=== PATIENT | female | born 1975 | race Two or more races ===

== ENCOUNTER 2021-01-13 17:52 | Emergency (ER) | payer OTHER ==
--- OUTSIDE RECORDS SUMMARY | 2021-01-13 17:55 | XMS REPORT | Continuity of Care Document ---
:1975 Author Organization [facility] t Address [address] [place] [address] Dr. Perales [address] [place] [id number] Care Team Providers Name Role Phone SYSTEM, NOT IN Attending Clinician Unavailable Problems This patient has no known problems. Allergies, Adverse Reactions, Alerts This patient has no known allergies or adverse reactions. Medications This patient has no known medications. Procedures This patient has no known procedures. Encounters Start End Encounter Admission Attending Care Care Encounter Source Date/Time Date/Time Type Type Clinicians Facility Department ID 2021-01-12 Outpatient SYSTEM, LILLIE MOREIRA [id number] 10:35:02 PROVIDER Dru o n Results This patient has no known results.
--- NOTE | 2021-01-13 19:52 | RAD REPORT ---
EXAM DESCRIPTION: Jennifer Single View01/13/2021 7:46 pm CLINICAL HISTORY: Chest pain COMPARISON: none FINDINGS: The lungs appear clear of acute infiltrate. The heart is normal size IMPRESSION: No acute abnormalities displayed
[2021-01-13 20:09] LABS: Absolute Lymphocytes (CBC) 1.9 K/uL (0.7-4.9); Basophils % 0.6 % (0-1.3); Hematocrit 36.5 % (36.0-45.0); Lymphocytes % 25.9 % (15.3-44.8); MPV 9.5 fL (7.6-11.3); RBC Red Blood Cell Count 4.96 M/uL (3.86-4.86)
[2021-01-13 20:12] LABS: Protime INR 0.91
[2021-01-13] MEDS ORDERED: NA CHLORIDE 0.9% 1,000 ML ONE (20:31)
[2021-01-13] MEDS ORDERED: ASPIRIN 81 MG CHEWABLE TABLET ONE (20:31)
[2021-01-13 20:35] LABS: ALT/SGPT 25 U/L (12-78); AST/SGOT 19 U/L (15-37); Albumin 3.6 g/dL (3.4-5.0); Alkaline Phosphatase 70 U/L (45-117); BUN Blood Urea Nitrogen 16 mg/dL (7-18); Bicarbonate 27 mmol/L (21-32); Bilirubin Direct < 0.1 mg/dL (0-0.2); Bilirubin Total 0.3 mg/dL (0.2-1.0); Glucose Level 105 mg/dL (74-106); Magnesium 2.4 mg/dL (1.8-2.4); NT PRO-BNP 10 pg/mL (<125); Protein, Total 7.7 g/dL (6.4-8.2); Sodium Level 140 mmol/L (136-145); Troponin (Emerg Dept Use Only) < 0.02 ng/mL (0.0-0.045)
--- NOTE | 2021-01-13 20:41 | RAD REPORT ---
EXAM DESCRIPTION: RAD - Ankle Right 3 View - 01/13/2021 8:30 pm CLINICAL HISTORY: Right ankle pain FINDINGS: Marked soft tissue swelling is present. No acute fracture or dislocation noted. Bony densities adjacent to the lateral malleolus likely chronic. Large plantar calcaneal spur
--- NOTE | 2021-01-13 21:12 | EDPHYS ---
Physician Documentation [facility] Name: Ankita Dhillon Age: 45 yrs Sex: Female : 1975 Arrival Date: 01/13/2021 Time: 17:55 Bed 26 Private MD: Jah Elder B ED Physician Karson Hilario HPI: 01/13 20:18 This 45 yrs old Female presents to ER via Ambulatory with complaints of Chest alyssa Tightness, Ankle Swelling. 20:18 The patient or guardian reports chest pain that is located primarily in the anterior alyssa chest wall, bilaterally. Onset: this morning. The pain does not radiate. Associated signs and symptoms: The patient has no apparent associated signs or symptoms. The chest pain is described as a pressure. Duration: The patient or guardian reports a single episode, that is now resolved. Modifying factors: The symptoms are alleviated by nothing. the symptoms are aggravated by nothing. Severity of pain: At its worst the pain was mild. The patient has not experienced similar symptoms in the past. 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 - Social history:: Smoking status: . - Family history:: not pertinent. ROS: 20:18 Constitutional: Negative for fever, chills, and weight loss, Eyes: Negative for injury, alyssa pain, redness, and discharge, ENT: Negative for injury, pain, and discharge, Neck: Negative for injury, pain, and swelling, Respiratory: Negative for shortness of breath, cough, wheezing, and pleuritic chest pain, Abdomen/GI: Negative for abdominal pain, nausea, vomiting, diarrhea, and constipation, Back: Negative for injury and pain, : Negative for injury, bleeding, discharge, and swelling, MS/Extremity: Negative for injury and deformity, Skin: Negative for injury, rash, and discoloration, Neuro: Negative for headache, weakness, numbness, tingling, and seizure, Psych: Negative for depression, anxiety, suicide ideation, homicidal ideation, and hallucinations, Allergy/Immunology: Negative for hives, rash, and allergies, Endocrine: Negative for neck swelling, polydipsia, polyuria, polyphagia, and marked weight changes, Hematologic/Lymphatic: Negative for swollen nodes, abnormal bleeding, and unusual bruising. 20:18 Cardiovascular: Positive for chest pain, of the chest. Exam: 20:18 Constitutional: This is a well developed, well nourished patient who is awake, alert, alyssa and in no acute distress. Head/Face: Normocephalic, atraumatic. Eyes: Pupils equal round and reactive to light, extra-ocular motions intact. Lids and lashes normal. Conjunctiva and sclera are non-icteric and not injected. Cornea within normal limits. Periorbital areas with no swelling, redness, or edema. ENT: Nares patent. No nasal discharge, no septal abnormalities noted. Tympanic membranes are normal and external auditory canals are clear. Oropharynx with no redness, swelling, or masses, exudates, or evidence of obstruction, uvula midline. Mucous membranes moist. Neck: Trachea midline, no thyromegaly or masses palpated, and no cervical lymphadenopathy. Supple, full range of motion without nuchal rigidity, or vertebral point tenderness. No Meningismus. Chest/axilla: Normal chest wall appearance and motion. Nontender with no deformity. No lesions are appreciated. Cardiovascular: Regular rate and rhythm with a normal S1 and S2. No gallops, murmurs, or rubs. Normal PMI, no JVD. No pulse deficits. Respiratory: Lungs have equal breath sounds bilaterally, clear to auscultation and percussion. No rales, rhonchi or wheezes noted. No increased work of breathing, no retractions or nasal flaring. Abdomen/GI: Soft, non-tender, with normal bowel sounds. No distension or tympany. No guarding or rebound. No evidence of tenderness throughout. Back: No spinal tenderness. No costovertebral tenderness. Full range of motion. Female : Normal external genitalia. Skin: Warm, dry with normal turgor. Normal color with no rashes, no lesions, and no evidence of cellulitis. MS/ Extremity: Pulses equal, no cyanosis. Neurovascular intact. Full, normal range of motion. Neuro: Awake and alert, GCS 15, oriented to person, place, time, and situation. Cranial nerves II-XII grossly intact. Motor strength 5/5 in all extremities. Sensory grossly intact. Cerebellar exam normal. Normal gait. Psych: Awake, alert, with orientation to person, place and time. Behavior, mood, and affect are within normal limits. Vital Signs: 17:59 BP 118 / 92; Pulse 92; Resp 17; Temp 98.1(TE); Pulse Ox 100% ; Weight 61.23 kg (R); tw2 Height 5 ft. 0 in. (152.40 cm); Pain 6/10; 19:08 BP 104 / 57; Pulse 76; Resp 18; Pulse Ox 100% on R/A; Pain 6/10; ld1 20:30 BP 118 / 69; Pulse 76; Resp 18; Pulse Ox 100% on R/A; ld1 21:51 BP 116 / 72; Pulse 70; Resp 18; Pulse Ox 100% on R/A; ld1 17:59 Body Mass Index 26.37 (61.23 kg, 152.40 cm) tw2 MDM: 19:18 Patient medically screened. alyssa 20:24 Differential diagnosis: abnormal EKG, acute myocardial infarction, acute pericarditis, alyssa anxiety, Cholelithiasis hiatal hernia, peptic ulcer disease, pulmonary embolus, stable angina, unstable angina. HEART Score: History: Slightly Suspicious (0), ECG: Normal (0), Age: > 45 and < 65 years (1), Risk Factors: 1 or 2 risk factors (1), [+ Family HX] Troponin: < or = 1 x Normal Limit (0). The patient was given aspirin in the Emergency Department. The patient's deep vein thrombosis risk score was calculated as follows: Total Score: 0. This patient was found to be at low risk for a deep vein thrombosis by using the Well's assessment criteria. The patient's pulmonary embolism risk score was calculated as follows: No Risks (0 Pts) Total Score: 0-2 points. This patient was found to be at low risk for a pulmonary embolism by using the Well's assessment criteria. REDDY Risk Score: TOTAL SCORE = 0. Data reviewed: vital signs, nurses notes, lab test result(s), EKG, radiologic studies, doppler, plain films. 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 Test interpretation: by ED physician or midlevel provider: ECG, plain radiologic studies. Counseling: I had a detailed discussion with the patient and/or guardian regarding: the historical points, exam findings, and any diagnostic results supporting the discharge/admit diagnosis, lab results, radiology results, the need for outpatient follow up. 01/13 19:26 Order name: Basic Metabolic Panel 01/13 19:26 Order name: CBC with Diff 01/13 19:26 Order name: LFT's 01/13 19:26 Order name: Magnesium 01/13 19:26 Order name: NT PRO-BNP 01/13 19:26 Order name: PT-INR 01/13 19:26 Order name: Troponin (emerg Dept Use Only) 01/13 20:10 Order name: CBC with Automated Diff; Complete Time: 20:26 EDHI 01/13 20:14 Order name: Protime (+INR); Complete Time: 20:26 EDHI 01/13 20:27 Order name: D-Dimer [facility] 01/13 20:35 Order name: Basic Metabolic Panel; Complete Time: 20:59 EDHI 01/13 20:35 Order name: Liver (Hepatic) Function; Complete Time: 20:59 EDHI 01/13 20:35 Order name: Troponin (Emerg Dept Use Only); Complete Time: 20:59 EDHI 01/13 20:35 Order name: NT PRO-BNP; Complete Time: 20:59 ED[facility] 01/13 19:26 Order name: XRAY Chest (1 view) 01/13 19:26 Order name: EKG; Complete Time: 19:27 01/13 19:26 Order name: Cardiac monitoring; Complete Time: 20:08 01/13 19:26 Order name: EKG - Nurse/Tech; Complete Time: 20:08 01/13 19:26 Order name: IV Saline Lock; Complete Time: 20:08 01/13 19:26 Order name: Labs collected and sent; Complete Time: 20:08 01/13 19:26 Order name: O2 Per Protocol; Complete Time: 19:38 01/13 19:26 Order name: O2 Sat Monitoring; Complete Time: 19:38 01/13 19:53 Order name: US Extremity Venous W Compression Chan [facility] 01/13 19:53 Order name: RAD; Complete Time: 20:26 EDHI 01/13 20:18 Order name: Ankle Right 3 View XRAY [facility] 01/13 20:35 Order name: Magnesium; Complete Time: 20:59 [facility] 01/13 20:41 Order name: RAD; Complete Time: 20:59 [facility] 01/13 20:45 Order name: D-Dimer; Complete Time: 20:59 [facility] 01/13 21:14 Order name: Mitchell wrap-joint; Complete Time: 21:15 [facility] 01/13 21:14 Order name: Ice pack; Complete Time: 21:15 [facility] Administered Medications: 20:13 Drug: NS 0.9% 1000 ml Route: IV; Rate: 1 bolus; Site: right antecubital; ld1 20:13 Drug: Aspirin 162 mg Route: PO; ld1 Disposition: 01/13/21 21:12 Discharged to Home. Impression: Chest pain, unspecified, Sprain of ankle. - Condition is Stable. - Discharge Instructions: Ankle Sprain, Nonspecific Chest Pain, RICE for Routine Care of Injuries, RICE for Routine Care of Injuries, [id number], Ankle Sprain, [id number]-[id number], Nonspecific Chest Pain, [id number]-ma-[id number], Stress and Stress Management, Aspirin and Your Heart, Ankle Pain. - Prescriptions for Pepcid 20 mg Oral Tablet - take 1 tablet by ORAL route every 12 hours for 10 days; 20 tablet. - Medication Reconciliation Form, Thank You Letter, Antibiotic Education, Prescription Opioid Use form. - Follow up: Jah Elder; When: 2 - 3 days; Reason: Recheck today's complaints, Continuance of care, Re-evaluation by your physician. Follow up: Marlo Oakes; When: 2 - 3 days; Reason: Recheck today's complaints, Re-evaluation by your physician. Follow up: Mihir Liao; When: 2 - 3 days; Reason: Recheck today's complaints, Re-evaluation by your physician. - Problem is new. - Symptoms have improved. Signatures: Dispatcher [employer] Karson Orozco MD MD cha Munoz, Edgar, RN RN Lottie Huitron RN RN tw2 Mae Winter RN RN ld1 Corrections: (The following items were deleted from the chart) 21:52 21:12 01/13/2021 21:12 Discharged to Home. Impression: Chest pain, unspecified; Sprain ld1 of ankle. Condition is Stable. Discharge Instructions: Ankle Sprain, Nonspecific Chest Pain, RICE for Routine Care of Injuries, RICE for Routine Care of Injuries, Wnwp-ka-Gyow, Ankle Sprain, Wopv-uf-Vzug, Nonspecific Chest Pain, Hvfu-nu-Laae, Stress and Stress Management, Aspirin and Your Heart, Ankle Pain. Prescriptions for Pepcid 20 mg Oral Tablet - take 1 tablet by ORAL route every 12 hours for 10 days; 20 tablet. and Forms are Medication Reconciliation Form, Thank You Letter, Antibiotic Education, Prescription Opioid Use. Follow up: Jah Elder; When: 2 - 3 days; Reason: Recheck today's complaints, Continuance of care, Re-evaluation by your physician. Follow up: Marlo Oakes; When: 2 - 3 days; Reason: Recheck today's complaints, Re-evaluation by your physician. Follow up: Mihir Liao; When: 2 - 3 days; Reason: Recheck today's complaints, Re-evaluation by your physician. Problem is new. Symptoms have improved. alyssa
--- NOTE | 2021-01-13 21:12 | ER ---
Nurse's Notes [facility] Name: Ankita Dhillon Age: 45 yrs Sex: Female : 1975 Arrival Date: 01/13/2021 Time: 17:55 Bed 26 Private MD: Jah Elder B Diagnosis: Chest pain, unspecified;Sprain of ankle Presentation: 01/13 17:59 Chief complaint: Patient states: i am stressed out at work and having been sleeping tw2 much. i got a diagnosis that i need a hysterectomy and it might be cancerous. my RIGHT ankle and leg is swollen. i had a clot before but it was in the calf. Chief complaint: Patient states: the pain has gotten worse. Coronavirus screen: At this time, the client does not indicate any symptoms associated with coronavirus-19. Ebola Screen: Patient denies travel to an Ebola-affected area in the 21 days before illness onset. Initial Sepsis Screen: Does the patient meet any 2 criteria? No. Patient's initial sepsis screen is negative. Does the patient have a suspected source of infection? No. Patient's initial sepsis screen is negative. Risk Assessment: Do you want to hurt yourself or someone else? Patient reports no desire to harm self or others. Onset of symptoms was January 13, 2021. 17:59 Method Of Arrival: Ambulatory tw2 17:59 Acuity: ANTONIO 3 tw2 Triage Assessment: 18:02 General: Appears in no apparent distress. slender, well groomed, Behavior is tw2 cooperative, appropriate for age, anxious. Pain: Complains of pain in right leg. Cardiovascular: Denies chest pain, "this morning my chest got really tight, it did go away". Musculoskeletal: Swelling present in right leg and ankle. 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 - Social history:: Smoking status: . - Family history:: not pertinent. Screenin:08 Abuse screen: Denies threats or abuse. Denies injuries from another. Nutritional ld1 screening: No deficits noted. Tuberculosis screening: No symptoms or risk factors identified. Fall Risk None identified. Assessment: 19:08 General: Appears in no apparent distress. comfortable, Behavior is calm, cooperative, ld1 appropriate for age, anxious. Pain: Complains of pain in right ankle, lateral aspect of right foot, right Achilles, right heel, medial aspect of right foot, anterior aspect of right ankle and dorsum of right foot Pain does not radiate. Pain currently is 6 out of 10 on a pain scale. Quality of pain is described as throbbing, Pain began 1 day ago. Is continuous. Neuro: Level of Consciousness is awake, alert, obeys commands, Oriented to person, place, time, situation, Appropriate for age. Cardiovascular: Capillary refill < 3 seconds Patient's skin is warm and dry. Respiratory: Airway is patent Respiratory effort is even, unlabored, Respiratory pattern is regular, symmetrical. GI: Abdomen is flat, non-distended. : No signs and/or symptoms were reported regarding the genitourinary system. EENT: No signs and/or symptoms were reported regarding the EENT system. Derm: No signs and/or symptoms reported regarding the dermatologic system. Musculoskeletal: Swelling present in anterior aspect of right ankle and dorsum of right foot Reports pain in anterior aspect of right ankle and dorsum of right foot. 20:30 Reassessment: Patient appears in no apparent distress at this time. No changes from ld1 previously documented assessment. Patient denies pain at this time. 21:50 Reassessment: Patient appears in no apparent distress at this time. No changes from ld1 previously documented assessment. Patient and/or family updated on plan of care and expected duration. Pain level reassessed. Waiting on results. Denies pain at this time. Vital Signs: 17:59 BP 118 / 92; Pulse 92; Resp 17; Temp 98.1(TE); Pulse Ox 100% ; Weight 61.23 kg (R); tw2 Height 5 ft. 0 in. (152.40 cm); Pain 6/10; 19:08 BP 104 / 57; Pulse 76; Resp 18; Pulse Ox 100% on R/A; Pain 6/10; ld1 20:30 BP 118 / 69; Pulse 76; Resp 18; Pulse Ox 100% on R/A; ld1 21:51 BP 116 / 72; Pulse 70; Resp 18; Pulse Ox 100% on R/A; ld1 17:59 Body Mass Index 26.37 (61.23 kg, 152.40 cm) tw2 ED Course: 17:55 Patient arrived in ED. mr 17:55 Jah Elder MD is Private Physician. mr 18:01 Triage completed. tw2 18:01 Arm band placed on. tw2 19:07 Mae Winter, RN is Primary Nurse. ld1 19:08 Patient has correct armband on for positive identification. Bed in low position. Call ld1 light in reach. Side rails up X2. Pulse ox on. NIBP on. 19:08 No provider procedures requiring assistance completed. Patient maintains SpO2 ld1 saturation greater than 95% on room air. 19:18 Karson Hilario MD is Attending Physician. alyssa 21:12 Jah Elder MD is Referral Physician. alyssa 21:12 Marlo Oakes MD is Referral Physician. alyssa 21:12 Mihir Liao MD is Referral Physician. alyssa 21:52 IV discontinued, intact, bleeding controlled, No redness/swelling at site. ld1 Administered Medications: 20:13 Drug: NS 0.9% 1000 ml Route: IV; Rate: 1 bolus; Site: right antecubital; ld1 20:13 Drug: Aspirin 162 mg Route: PO; ld1 Outcome: 21:12 Discharge ordered by . alyssa 21:52 Discharged to home ambulatory. ld1 21:52 Condition: stable 21:52 Discharge instructions given to patient, Instructed on discharge instructions, follow up and referral plans. medication usage, Demonstrated understanding of instructions, follow-up care, medications. 21:52 Patient left the ED. ld1 Signatures: Karson Hilario MD MD cha Rivera, Mary Lottie Samuels, RN RN tw2 Mae Winter, JOSHUA RN ld1 Corrections: (The following items were deleted from the chart) 21:50 20:30 Reassessment: Patient appears in no apparent distress at this time. No changes ld1 from previously documented assessment. Patient and/or family updated on plan of care and expected duration. Pain level reassessed. Waiting on results. Denies pain at this time. ld1
[2021-01-13 22:44] VITALS: TEMP 98.1; O2SAT 100
[2021-01-13 22:49] VITALS: BP 116/72
--- NOTE | 2021-01-14 08:38 | RAD REPORT ---
EXAM DESCRIPTION: US - Extrem Venous W Compress Chan - 01/13/2021 9:31 pm CLINICAL HISTORY: PAIN Bilateral leg edema and swelling. COMPARISON: Extremity Venous Uni Ltd dated 09/21/2016 TECHNIQUE: Real-time sonographic interrogation of the left and right lower extremity deep venous sys tems was performed. FINDINGS: Normal compressibility, flow augmentation, phasic flow and spontaneous flow is identified in both the left and right lower extremity deep venous systems. IMPRESSION: No sonographic evidence of left or right lower extremity deep venous thrombosis.
--- NOTE | 2021-01-14 10:33 | EKG ---
Test Date: 2021-01-13 Test Time: 20:03:14 Bleach Chlorinator: VEE MEASUREMENT RESULTS: Intervals: Rate: 68 NC: 174 QRSD: 70 QT: 404 QTc: 429 Dodge: P: 26 NC: 174 QRS: 20 T: 35 INTERPRETIVE STATEMENTS: Normal sinus rhythm Normal ECG No previous ECG available for comparison Electronically Signed On 01-14-21 10:31:42 CDT by Marlo Oakes
== END 2021-01-13 21:52 | disposition home or self-care (01) ==
LOC: ER 17:52
DX: S93.401A Sprain of unspecified ligament of right ankle, initial encounter (principal)
CPT/HCPCS: 85025; 80048; 36415; 83735; 85610; 85379; 80076; 84484; 83880; 71045; 73610; 93970; J7030; 93005